=== PATIENT | female | born 1980 | race Caucasian/White ===

== ENCOUNTER → 2020-10-27 08:26 | Outpatient (BNVA) | payer BC, SELFPAY | PROVIDERS: PCP Nurse Practitioner Family; Referring Provider Nurse Practitioner Family; Visit Provider Anesthesiology Pain Medicine | DX: G89.29 Other chronic pain (principal); M54.9 Dorsalgia, unspecified; M51.36 Other intervertebral disc degeneration, lumbar region; M47.816 Spondylosis without myelopathy or radiculopathy, lumbar region; Z79.891 Long term (current) use of opiate analgesic | CPT/HCPCS: 99205 ==

== ENCOUNTER → 2020-11-24 08:16 | Outpatient (BNVA) | payer BC, SELFPAY | PROVIDERS: PCP Nurse Practitioner Family; Visit Provider Anesthesiology Pain Medicine | DX: M47.816 Spondylosis without myelopathy or radiculopathy, lumbar region (principal); M51.36 Other intervertebral disc degeneration, lumbar region; M54.9 Dorsalgia, unspecified; Z79.891 Long term (current) use of opiate analgesic | CPT/HCPCS: 99214 ==

== ENCOUNTER 2020-12-05 12:52 | Outpatient (CLI) | payer BC, SELFPAY ==
--- NOTE | 2020-12-05 12:55 | MM_ITS ---
WS: [id number] BILATERAL DIGITAL DIAGNOSTIC MAMMOGRAM MAMMOGRAPHY WITH CAD CLINICAL INFORMATION: LT AXILLARY SWELLING HISTORY: Covid vaccine November 19, 2020 Left arm. Left axillary lump. COMPARISON: None. TECHNIQUE: Bilateral CC, MLO, and ML views. FINDINGS: Scattered fibroglandular densities bilaterally. Palpable marker overlying the left axilla demonstrate s multiple slightly prominent lymph nodes. Ultrasound is pending. No suspicious focal mass, asymmetry, calcifications, or architectural distortion in either breast. ULTRASOUND BREAST LEFT TECHNIQUE: Ultrasound left breast focused area of concern. CLINICAL INFORMATION: LT AXILLARY SWELLING COMPARISON: None. FINDINGS: Ultrasound left axilla demonstrates multiple slightly enlarged lymph nodes with preserved fatty devon. The largest measures approximately 1.9 x 0.6 x 1.5 CM. 2 additional lymph nodes measuring 1.0 x 0.5 x 1.2 cm and 1.3 x 0.5 x 0.9 cm Unilateral axillary lymphadenopathy has been reported in patients after administration of COVID-19 Va ccine. Lymph nodes are probably benign and recommend short interval follow-up ultrasound in 4-6 weeks . MM/[place] [id number] IMPRESSION: BI-RADS: 3-Probably Benign FOLLOW UP: See Report Recommend follow-up left axillary ultrasound in 4-6 weeks for further assessmen t of the left axillary lymph nodes.
== END 2020-12-05 12:53 | disposition home or self-care (01) ==
LOC: RADSHAW 12:54
PROVIDERS: PCP Nurse Practitioner Family; Visit Provider Nurse Practitioner Family
DX: M79.89 Other specified soft tissue disorders (principal)
CPT/HCPCS: 76642; 77066

== ENCOUNTER 2020-12-09 09:22 | Outpatient (RCR) | payer BC, SELFPAY | END 2020-12-24 23:59 | disposition home or self-care (01) | LOC: SPT 09:22 | PROVIDERS: PCP Nurse Practitioner Family; Referring Provider Anesthesiology Pain Medicine; Visit Provider Anesthesiology Pain Medicine | DX: M54.5 Low back pain (principal); G89.29 Other chronic pain | CPT/HCPCS: 97110; 97161 ==

== ENCOUNTER 2020-12-25 06:00 | Outpatient (RCR) | payer BC, SELFPAY | END 2021-01-23 23:59 | disposition home or self-care (01) | LOC: SPT 06:00 | PROVIDERS: PCP Nurse Practitioner Family; Referring Provider Anesthesiology Pain Medicine; Visit Provider Anesthesiology Pain Medicine | DX: M54.5 Low back pain (principal); G89.29 Other chronic pain | CPT/HCPCS: 97110; 99214 ==

== ENCOUNTER → 2020-12-25 08:32 | Outpatient (BNVA) | payer BC, SELFPAY | PROVIDERS: PCP Nurse Practitioner Family; Visit Provider Anesthesiology Pain Medicine | DX: M47.816 Spondylosis without myelopathy or radiculopathy, lumbar region (principal); M51.36 Other intervertebral disc degeneration, lumbar region; M54.9 Dorsalgia, unspecified; Z79.891 Long term (current) use of opiate analgesic | CPT/HCPCS: 99214 ==

== ENCOUNTER 2021-01-15 06:54 | Day surgery (SDC) | payer BC, SELFPAY ==
[2021-01-14 18:41] VITALS: BMI 25.8
[2021-01-15] VITALS (12 sets, daily range): BP systolic 99–135; BP diastolic 61–84; PULSE 70–97; RESP 12–20; TEMP 36.4–36.6; O2SAT 94–100
[2021-01-15] MEDS: sodium chloride 0.9% 1,000 ML 30 ML IV (07:39)
--- NOTE | 2021-01-15 08:11 | W.PM.OPSUD ---
Surgery/Procedure H&P Update DATE OF PROCEDURE: January 15, 2021 DATE H&P PERFORMED: 01/12/21 H&P UPDATE INFORMATION: No changes to prior documentation PLANNED PROCEDURE: Operation Date: 01/15/21 08:30 Proposed Procedures p Left axillary lymph node biopsy 47058 R59.0 Z85.71(Left) - Vinicio Sparrow MD
--- NOTE | 2021-01-15 08:45 | ANES.PREANE2 ---
Pre-Anesthetic Assessment Pre-Anesthetic Assessment: Height/Weight: Height 1.75 m Weight 79.379 kg Temp Pulse Resp BP Pulse Ox 97.8 F 96 16 116/84 100 01/15/21 07:16 01/15/21 07:16 01/15/21 07:16 01/15/21 07:16 01/15/21 07:16 Proposed Procedure: Operation Date: 01/15/21 08:30 Proposed Procedures p Left axillary lymph node biopsy 43354 R59.0 Z85.71(Left) - Vinicio Sparrow MD Was Beta Mookie taken within 24 hours: Yes Was Clonidine taken within 24 hours: N/A Last intake: Intake Last Liquid Date 01/15/21 Last Liquid Time 06:00 Last Solid Date 01/14/21 Last Solid Time 19:00 Social: Social History: No alcohol and No tobacco Exam: Pre-Anes Outpt Exam: alert, oriented x 3, clear to auscultation bilaterally and regular rate & rhythm Airway: Submandibular: WNL Cervical ROM: WNL MP: 2 Dentition: Full GI: GI: GERD Musc/skel: Musc/skel: Lower Back Pain Neuropsych: Neuropsych: GARAY Comments: MS Anesthetic Plan: ASA status: 3 Anesthesia: General Risk of > 500 ml blood loss (7ml/kg in children): No Meds/Allergies Current Medications: Current Medications Generic Name Dose Route Start Last Admin Trade Name Freq PRN Reason Stop Dose Admin Sodium Chloride 1,000 mls @ 30 ml s/hr 01/15/21 07:00 01/15/21 07:39 Sodium Chloride 0.9% IV 01/16/21 06:59 30 mls/hr .Q24H ARELY Administration PFSH Anesthesia PFSH: Family History Mother Multiple sclerosis Social History Smoking and tobacco status: never smoked Alcohol intake: never History of recent travel: No Data Anesthesia Cardiac Studies: No Data to Display
--- NOTE | 2021-01-15 09:54 | P.OP_ITS ---
Operative Report Date of procedure: January 15, 2021 Pre-op Diagnosis: Left axillary lymphadenopathy, history of Hodgkin's lymphoma. Post-op diagnosis: same Procedure Done: Left axillary lymph node biopsy. Specimens removed/disposition: Lymph node(s) for lymph node prep. Surgeon: Vinicio Sparrow Anesthesia: General Estimated blood loss (mL): 5 Complications: None. Condition: stable Disposition: PACU Procedure: The patient was brought to the operating room and was placed in a supine position on the operating room table. General anesthesia was induced by means of a laryngeal mask airway. The left axilla was prepped and draped in a sterile fashion. A combination of 1% lidocaine with 1 to 100,000 parts epinephrine and 0.5% bupivacaine was used for local anesthesia throughout the procedure. A slightly curvilinear incision was carried out in the low?mid axilla just below the area of palpable firmness. Cautery was used to divide the subcutaneous tissue and eventually the axilla was entered. Palpation revealed some palpable lymph nodes somewhat superiorly. These were carefully freed using blunt dissection and were removed. It appeared as if there were perhaps 2 or 3 lymph nodes somewhat matted together and all of these were removed as one specimen. The lymph nodes may have been mildly enlarged. The wound was irrigated with saline and hemostasis appeared to be good. The subcutaneous tissue was closed using a single inverted suture of 3-0 Vicryl and the skin was reapproximated using a running subcuticular suture of 4-0 Vicryl. Benzoin and a Steri-Strip w ere placed over the incision and a sterile fluff dressing was then applied. The patient was taken to the recovery area in stable condition postoperatively.
[2021-01-15] MEDS: fentaNYL 50 mcg/mL INJ 2mL IVP ×2 (10:09→10:14)
[2021-01-15] MEDS: HYDROcodone-acetaminophen 5-325 mg Tablet 1 TAB PO (11:15)
--- NOTE | 2021-01-15 15:42 | ANE.PACU2 ---
Inpatient post-anesthesia follow up: Airway intact: Yes Vital signs: Temperature 97.8 F Pulse Rate 70 Respiratory Rate 18 Blood Pressure 135/68 Pulse Oximetry 96 Oxygen Delivery Me thod Room Air Oxygen Flow Rate 8 Fraction of Inspir ed Oxygen Hydration adequate: Yes Nausea and vomiting: No Pain level: 1 Mental status: Baseline
[2021-01-26 10:57] LABS: Miscellaneous Test See Scanned Lab Rpt
== END 2021-01-15 11:32 | disposition home or self-care (01) ==
PROVIDERS: PCP Nurse Practitioner Family; Visit Provider Surgery
PROC: (CPT 38525; principal; 2021-01-15 08:30)
DX: R59.0 Localized enlarged lymph nodes (principal); Z87.51 Personal history of pre-term labor; K21.9 Gastro-esophageal reflux disease without esophagitis; I50.9 Heart failure, unspecified; E78.00 Pure hypercholesterolemia, unspecified
CPT/HCPCS: 38525; 12345; 87015; 87070; 87102; 87116; 87176; 87205; 87206; 87801; 88184; 88185; 88305; J0690; J2250; J2405; J2704; J3010; J3490; J7030

== ENCOUNTER → 2021-01-22 08:26 | Outpatient (BNVA) | payer BC, SELFPAY | PROVIDERS: PCP Nurse Practitioner Family; Visit Provider Anesthesiology Pain Medicine | DX: M47.816 Spondylosis without myelopathy or radiculopathy, lumbar region (principal); M51.36 Other intervertebral disc degeneration, lumbar region; M54.9 Dorsalgia, unspecified; G35 Multiple sclerosis; Z79.891 Long term (current) use of opiate analgesic | CPT/HCPCS: 99214 ==

== ENCOUNTER 2021-01-24 06:00 | Outpatient (RCR) | payer BC, SELFPAY | END 2021-02-23 23:59 | disposition home or self-care (01) | LOC: SPT 06:00 | PROVIDERS: PCP Nurse Practitioner Family; Referring Provider Anesthesiology Pain Medicine; Visit Provider Anesthesiology Pain Medicine | DX: M54.5 Low back pain (principal); G89.29 Other chronic pain | CPT/HCPCS: 97110 ==

== ENCOUNTER → 2021-02-19 13:06 | Outpatient (BNVA) | payer BC, SELFPAY | PROVIDERS: PCP Nurse Practitioner Family; Visit Provider Anesthesiology Pain Medicine | DX: G89.29 Other chronic pain (principal); M54.41 Lumbago with sciatica, right side; M47.816 Spondylosis without myelopathy or radiculopathy, lumbar region; M51.36 Other intervertebral disc degeneration, lumbar region; M54.9 Dorsalgia, unspecified; G35 Multiple sclerosis; Z79.891 Long term (current) use of opiate analgesic | CPT/HCPCS: 99214 ==

== ENCOUNTER 2021-02-24 06:00 | Outpatient (RCR) | payer BC, SELFPAY | END 2021-03-25 23:59 | disposition home or self-care (01) | LOC: SPT 06:00 | PROVIDERS: PCP Nurse Practitioner Family; Referring Provider Anesthesiology Pain Medicine; Visit Provider Anesthesiology Pain Medicine | DX: M54.5 Low back pain (principal); G89.29 Other chronic pain | CPT/HCPCS: 97110 ==

== ENCOUNTER → 2021-03-17 09:42 | Outpatient (BNVA) | payer BC, SELFPAY | PROVIDERS: PCP Nurse Practitioner Family; Visit Provider Anesthesiology Pain Medicine | DX: G89.29 Other chronic pain (principal); M54.41 Lumbago with sciatica, right side; M47.816 Spondylosis without myelopathy or radiculopathy, lumbar region; M51.36 Other intervertebral disc degeneration, lumbar region; M54.9 Dorsalgia, unspecified; G35 Multiple sclerosis; Z79.891 Long term (current) use of opiate analgesic; Z87.891 Personal history of nicotine dependence | CPT/HCPCS: 99214 ==

== ENCOUNTER → 2021-04-14 09:48 | Outpatient (BNVA) | payer BC, SELFPAY | PROVIDERS: PCP Nurse Practitioner Family; Visit Provider Anesthesiology Pain Medicine | DX: G89.29 Other chronic pain (principal); M54.41 Lumbago with sciatica, right side; M47.816 Spondylosis without myelopathy or radiculopathy, lumbar region; M51.36 Other intervertebral disc degeneration, lumbar region; G35 Multiple sclerosis; Z79.891 Long term (current) use of opiate analgesic | CPT/HCPCS: 99214 ==

== ENCOUNTER → 2021-05-12 10:44 | Outpatient (BNVA) | payer BC, SELFPAY | PROVIDERS: PCP Nurse Practitioner Family; Visit Provider Anesthesiology Pain Medicine | DX: M47.816 Spondylosis without myelopathy or radiculopathy, lumbar region (principal); M51.36 Other intervertebral disc degeneration, lumbar region; G35 Multiple sclerosis; Z79.891 Long term (current) use of opiate analgesic; Z87.891 Personal history of nicotine dependence | CPT/HCPCS: 99214 ==

== ENCOUNTER → 2021-06-09 09:31 | Outpatient (BNVA) | payer BC, SELFPAY | PROVIDERS: PCP Nurse Practitioner Family; Visit Provider Anesthesiology Pain Medicine | DX: M47.816 Spondylosis without myelopathy or radiculopathy, lumbar region (principal); M51.36 Other intervertebral disc degeneration, lumbar region; G35 Multiple sclerosis; M79.604 Pain in right leg; M79.605 Pain in left leg; Z79.891 Long term (current) use of opiate analgesic | CPT/HCPCS: 99214 ==

== ENCOUNTER → 2021-07-07 08:55 | Outpatient (BNVA) | payer BC, SELFPAY | PROVIDERS: PCP Nurse Practitioner Family; Visit Provider Anesthesiology Pain Medicine | DX: M47.816 Spondylosis without myelopathy or radiculopathy, lumbar region (principal); M51.36 Other intervertebral disc degeneration, lumbar region; G35 Multiple sclerosis; M79.604 Pain in right leg; M79.605 Pain in left leg; R25.1 Tremor, unspecified; Z79.891 Long term (current) use of opiate analgesic; Z87.891 Personal history of nicotine dependence | CPT/HCPCS: 99214 ==

== ENCOUNTER → 2021-09-01 10:34 | Outpatient (BNVA) | payer BC, SELFPAY | PROVIDERS: PCP Nurse Practitioner Family; Visit Provider Anesthesiology Pain Medicine | DX: M47.816 Spondylosis without myelopathy or radiculopathy, lumbar region (principal); M51.36 Other intervertebral disc degeneration, lumbar region; G35 Multiple sclerosis; M79.604 Pain in right leg; M79.605 Pain in left leg; Z85.71 Personal history of Hodgkin lymphoma; Z79.891 Long term (current) use of opiate analgesic; Z87.891 Personal history of nicotine dependence | CPT/HCPCS: 99214 ==

== ENCOUNTER 2022-02-09 07:54 | Outpatient (CLI) | payer BC, SELFPAY ==
--- NOTE | 2022-02-09 08:04 | MR_ITS ---
WS: [email or web address] MRI CERVICAL SPINE with and without contrast. HISTORY: MS COMPARISON: None available. Technique: Multiplanar, multisequence noncontrast imaging of the cervical spine. Postcontrast images also obtained. Sagittal and axial T1 fat sat sequences post-MultiHance 17 cc IV. Posterior alignment is normal of the cervical vertebral bodies. There is increased T2 and FLAIR signal in the cervical cord at the C2-3 level extending over a length of 10 mm. This is just to the RIGHT of midline. On the postcontrast sequences there is some very mil d enhancement. At additional increased T2 signal in the LEFT lateral cervical cord at C5-6. Seen best on the axial imaging. No enhancement. No abnormality is noted in the cerebellum. Craniocervical junction, C1 and C2 relationship, odontoid process and soft tissues are normal. Additional abnormal signal in the thoracic cord will be better seen on the follow-up MRI of the thora cic spine. C2-C3: Normal. C3-C4: Normal. C4-C5: Tiny central disc protrusion. C5-C6: Mild disc bulging. C6-C7: Tiny central disc protrusion with annular fissure. Small bilateral foraminal osteophyte, LEFT greater than RIGHT. No stenosis. C7-T1: Normal. Paraspinal soft tissue are normal. MR/MR cervical spine wo/w [id number] IMPRESSION: 1. Demyelinating lesions in the cervical cord at C2-3 and C5-6. 2. Very minimal enhancement in the demyelinating lesion at the C2-3 level. 3. No cord atrophy. 4. No significant central or foraminal stenosis.
--- NOTE | 2022-02-09 08:05 | MR_ITS ---
WS: [email or web address] MRI THORACIC SPINE with and without contrast. HISTORY: MS COMPARISON: None available. TECHNIQUE: Multiplanar sequences are performed in sagittal and axial planes. Sagittal and axial T1 fa t sat sequences post-MultiHance 17 cc IV. Sagittal STIR sequence is limited by motion. Focal area of increased T2 signal in the thoracic cord extends over a length of 1.0 cm centered at T3 -4. No enhancement on the postcontrast studies. No definite additional areas of abnormal signal. No c ord atrophy. There is no cord enlargement. Conus tapers normally at L1. Seen on the axial T1 postcontrast sequence is a very subtle nodular area of increased enhancement in the dorsal RIGHT lateral thoracic cord at the T5-6 disc level. Nodular enhancement measures 4 mm diam eter. This is not identified on the STIR sequence but there is motion artifact on this sequence. I bullock spect this could be a demyelinating lesion but only seen on the postcontrast axial imaging. No significant disc protrusions or stenosis throughout the thoracic spine. Mild facet joint arthritis and hypertrophy beginning at T7-8 through T12-L1. MR/MR thoracic spine wo/w [id number] IMPRESSION: 1. Seen only on the axial postcontrast images is a 4 mm area of enhancement at the T5-6 disc level. Suspicious for an area of active demyelination. 2. Demyelinating lesion at the T3-4 level does not enhance.
== END 2022-02-09 07:55 | disposition home or self-care (01) ==
PROVIDERS: PCP Nurse Practitioner Family; Visit Provider Psychiatry & Neurology Neurology
DX: M50.221 Other cervical disc displacement at C4-C5 level (principal); M50.223 Other cervical disc displacement at C6-C7 level; M54.6 Pain in thoracic spine; M54.2 Cervicalgia
CPT/HCPCS: 72156; 72157

== ENCOUNTER 2022-03-11 12:14 | Outpatient (CLI) | payer BC, SELFPAY ==
[2022-03-11 13:27] LABS: Free T4 Free Thyroxine 0.82 ng/dL (0.82-1.77); Thyroid Stimulating Hormone 2.49 uIU/mL (0.27-4.20)
[2022-03-12 14:12] LABS: Thyroglobulin AB <1 IU/mL (< or = 1); Thyroid Peroxidase Antobodies 1 IU/mL (<9)
[2022-03-19 20:34] LABS: TSH Receptor Binding Antibody <1.00 IU/L (< OR = 2.00)
== END 2022-03-11 12:15 | disposition home or self-care (01) ==
PROVIDERS: PCP Nurse Practitioner Family; Visit Provider Internal Medicine
DX: E03.9 Hypothyroidism, unspecified (principal)
CPT/HCPCS: 36415; 83516; 84439; 84443; 86376; 86800

== ENCOUNTER → 2022-11-09 09:42 | Outpatient (BNVA) | payer BC, SELFPAY | PROVIDERS: PCP Nurse Practitioner Family; Visit Provider Anesthesiology Pain Medicine | DX: M47.816 Spondylosis without myelopathy or radiculopathy, lumbar region (principal); M51.36 Other intervertebral disc degeneration, lumbar region; M54.50 Low back pain, unspecified; M54.9 Dorsalgia, unspecified; G89.29 Other chronic pain; G35 Multiple sclerosis | CPT/HCPCS: 72110 ==

== ENCOUNTER 2022-12-24 16:08 | Outpatient (CLI) | payer BC, MEDICAID, SELFPAY ==
--- NOTE | 2022-12-24 | US_ITS ---
WS: [email or web address] THYROID ULTRASOUND HISTORY: THYROID NODULE COMPARISON: None available. Right lobe: 2.2 cm x 2.5 cm x 4.7 cm (w x ap x l). Volume: 13.4 cm3. Enlarged and very heterogeneous, nodular thyroid gland. Diffuse heterogeneity with several cystic nod ules. Continued increased vascularity. Left lobe: Prior LEFT thyroidectomy. No mass in the thyroid bed. Isthmus: Removed. US/US thyroid [id number] IMPRESSION: 1. Status post LEFT thyroidectomy. 2. Enlarged heterogeneous nodular RIGHT thyroid with mild increased vascularit y. Probably due to Kristen's thyroiditis or goiter. There are numerous nodule s which are predominantly cystic. There is no one discrete nodule that appears more concerning than another.
== END 2022-12-24 16:09 | disposition home or self-care (01) ==
PROVIDERS: PCP Nurse Practitioner Family; Visit Provider Internal Medicine
DX: E89.0 Postprocedural hypothyroidism (principal); E04.2 Nontoxic multinodular goiter
CPT/HCPCS: 76536

== ENCOUNTER 2023-01-10 14:29 | Outpatient (CLI) | payer BC, MEDICAID, SELFPAY ==
--- NOTE | 2023-01-10 14:30 | MR_ITS ---
WS: [email or web address] MRI CERVICAL SPINE NONCONTRAST TECHNIQUE: Sagittal T1, T2 and STIR imaging. Axial T2, gradient, and fiesta imaging. CLINICAL INFORMATION: G35 - Multiple sclerosis COMPARISON: February 09, 2022 FINDINGS: Straightening of the normal cervical lordosis. Cord signal is normal. No high-grade central canal romana rowing. Chronic demyelinating plaques within the cervical cord. No enhancing lesions to indicate acti ve disease. No significant cord atrophy. Demyelinating lesions more prominent at C2-C3 C5-C6 and T3. C2-C3: Normal. C3-C4: Normal. C4-C5: Minimal disc bulging. Spinal canal and foramen are patent. C5-C6: Minimal disc bulging. Mild facet arthropathy. Spinal canal and foramen are patent. C6-C7: LEFT eccentric disc bulging with mild LEFT proximal foraminal narrowing. Tiny annular fissure. Spinal canal and RIGHT foramen are patent. Mild facet arthropathy. C7-T1: LEFT eccentric disc osteophytic ridging. Mild LEFT and no significant RIGHT foraminal narrowin g. Mild facet arthropathy. Visualized brain stem structures: Normal. Prevertebral soft tissues: Normal. MR/MR cervical spine wo/w [id number] IMPRESSION: 1. Chronic demyelinating plaques within the cervical cord. No enhancing lesion s to indicate active disease. 2. No significant cord atrophy. 3. LEFT eccentric disc bulging C6-C7 with a tiny annular fissure. Mild LEFT C6 -C7 and LEFT C7-T1 foraminal narrowing. 4. Heterogeneous RIGHT thyroid with thyroid nodules the largest measuring 9.5 mm. This can be further evaluated with ultrasound
--- NOTE | 2023-01-10 15:15 | MR_ITS ---
WS: [email or web address] MRI THORACIC SPINE WITH CONTRAST TECHNIQUE: Sagittal T1, T2 and STIR imaging. Axial T2 imaging. Post gadolinium imaging was obtained. CLINICAL INFORMATION: G35 - Multiple sclerosis COMPARISON: February 09, 2022 FINDINGS: Mild thoracic curve. No acute compression. No high-grade central canal stenosis. A few chronic demyel inating plaques within the thoracic cord. No enhancing lesions to indicate active disease. Mild facet arthropathy in the lower thoracic spine. Normal caliber thoracic aorta. No significant cord atrophy. Chronic demyelinating plaques most prominent at T3-T4, T6, and T8. These appear unchanged from previo us. Mild bony foraminal narrowing RIGHT T9-T10, RIGHT T10-T11. Tiny RIGHT pericentral protrusion T9-T10. MR/MR thoracic spine wo/w [id number] IMPRESSION: 1. Chronic demyelinating plaques within the thoracic cord is unchanged from pr evious. No enhancing lesions to indicate active disease. 2. No significant cord atrophy. 3. No central canal stenosis. 4. No other suspicious findings.
[2023-01-10] MEDS: gadobenate dimeglumine 20 mL vial IV (16:09)
== END 2023-01-10 14:30 | disposition home or self-care (01) ==
LOC: RAD 14:38
PROVIDERS: PCP Nurse Practitioner Family; Visit Provider Specialist
DX: G35 Multiple sclerosis (principal)
CPT/HCPCS: 72156; 72157; A9577

== ENCOUNTER 2023-01-11 15:57 | Outpatient (CLI) | payer BC, MEDICAID, SELFPAY ==
--- NOTE | 2023-01-11 16:00 | MR_ITS ---
WS: [email or web address] MRI HEAD WITH CONTRAST TECHNIQUE: Sagittal T1, T2 axial, T2 axial FLAIR, axial susceptibility weighted imaging, axial diffus ion weighted images, and coronal T2 images were obtained. Pre and post-T1 axial and post T1 coronal i mages. ADC and FSPGR images. CLINICAL INFORMATION: G35 - Multiple sclerosis COMPARISON: No MRI head comparisons. FINDINGS: No evidence of restricted diffusion to suggest acute ischemia. Ventricular system and basal cisterns are patent. Normal posterior fossa. Normal vascular flow voids at the skull base. No extra-axial flui d collections. No evidence of mass or mass effect. Paranasal sinuses and mastoid air cells well aerat ed. Normal posterior nasopharynx and parapharyngeal fat. 2 or 3 tiny foci of T2 hyperintensity in the periventricular white matter. Corpus callosum is normal in appearance. No significant corpus callosal atrophy. No significant parenchymal volume loss. Normal posterior fossa. Normal vascular flow voids at the skull base. No extra-axial fluid collections. Par anasal sinuses are well aerated. Normal optic chiasm and pituitary infundibulum. Temporal lobes and hippocampal formations are normal in appearance. Normal cavernous sinuses and Meckel's cave. No hemosiderin on susceptibly weighted lon ges. No abnormal intracranial enhancement. No enhancing intracranial lesions. Normal dural venous sin uses. No significant T1 hypointense lesion load. MR/MR head wo/w con [id number] IMPRESSION: 1. No evidence of restricted diffusion to suggest acute ischemia. 2. 2 or 3 tiny nonspecific foci of T2 hyperintensity in the periventricular wh ite matter. No abnormal gadolinium enhancement to suggest active demyelinating plaques. 3. Corpus callosum is normal in appearance. No significant callosal atrophy. 4. No abnormal gadolinium enhancement. 5. No significant parenchymal volume loss. 6. No other suspicious findings.
[2023-01-11] MEDS: gadobenate dimeglumine 20 mL vial IV (16:15)
== END 2023-01-11 15:58 | disposition home or self-care (01) ==
LOC: RAD 16:01
PROVIDERS: PCP Nurse Practitioner Family; Visit Provider Specialist
DX: G35 Multiple sclerosis (principal)
CPT/HCPCS: 70553; A9577

== ENCOUNTER 2023-04-19 09:00 | Oncology outpatient (recurring) (ONCR) | payer BC, SELFPAY ==
[2023-04-05] VITALS (10 sets, daily range): BP systolic 110–127; BP diastolic 68–76; PULSE 90–105; RESP 16–18; TEMP 35.7–37.3; O2SAT 95–99; BMI 27.1
[2023-04-05] MEDS: acetaminophen 500 mg Tablet 1000 MG PO (14:43)
[2023-04-05] MEDS: sodium chloride 0.9% 250 ML 75 ML IV ×2 (14:45→17:44)
[2023-04-05] MEDS: diphenhydrAMINE 50 mg/mL SDV 1mL 25 MG IVP ×3 (14:48→17:30)
[2023-04-05] MEDS: methylPREDNISolone sod succ 125 mg/2 mL INJ IVP (14:56)
[2023-04-05] MEDS: ocrelizumab 300 MG in sodium chloride 0.9% 250 ML 30 MG IV (15:10)
[2023-04-05] MEDS: methylPREDNISolone sod succ 125 mg/2 mL INJ 250 MG IVP (18:01)
[2023-04-19] VITALS (9 sets, daily range): BP systolic 103–126; BP diastolic 63–77; PULSE 85–99; RESP 16; TEMP 36.2–36.7; O2SAT 98–99; BMI 27.1
[2023-04-19] MEDS: sodium chloride 0.9% 250 ML IV (10:13)
[2023-04-19] MEDS: acetaminophen 500 mg Tablet 1000 MG PO (10:18)
[2023-04-19] MEDS: diphenhydrAMINE 50 mg/mL SDV 1mL 25 MG IVP (10:20)
[2023-04-19] MEDS: methylPREDNISolone sod succ 125 mg SDV IV (10:34)
[2023-04-19] MEDS: ocrelizumab 300 MG in sodium chloride 0.9% 250 ML 30 MG IV (11:05)
== END 2023-04-25 23:59 | disposition home or self-care (01) ==
PROVIDERS: PCP Nurse Practitioner Family; Visit Provider Specialist
DX: G35 Multiple sclerosis (principal)
CPT/HCPCS: 96361; 96375; 96376; 96413; 96415; J1200; J2350; J2930; J7050

== ENCOUNTER 2023-10-03 08:42 | Oncology outpatient (recurring) (ONCR) | payer BC, MEDICAID, SELFPAY ==
[2023-10-03] MEDS: acetaminophen 500 mg Tablet 1000 MG PO (09:54)
[2023-10-03] MEDS: sodium chloride 0.9% 250 ML 75 ML IV (09:55)
[2023-10-03] MEDS: diphenhydrAMINE 50 mg/mL SDV 1mL 25 MG IVP (09:56)
[2023-10-03] MEDS: methylPREDNISolone sod succ 125 mg SDV IVP (09:59)
[2023-10-03 10:15] VITALS: BP 103/68; PULSE 90; RESP 16; TEMP 36.1; O2SAT 95
[2023-10-03] MEDS: ocrelizumab 600 MG in sodium chloride 0.9% 500 ML 40 MG IV (10:15)
[2023-10-03 10:45] VITALS: BP 102/66; PULSE 85; RESP 18; TEMP 36.4; O2SAT 98
[2023-10-03 11:20] VITALS: BP 108/68; PULSE 89; RESP 18; TEMP 36.7; O2SAT 97
[2023-10-03 11:50] VITALS: BP 112/74; PULSE 90; RESP 16; TEMP 36.7; O2SAT 97
[2023-10-03 12:45] VITALS: BP 100/67; PULSE 88; RESP 16; TEMP 37; O2SAT 94
[2023-10-03 14:50] VITALS: BP 105/67; PULSE 87; RESP 16; TEMP 36.1; TEMP 36.6; O2SAT 95
== END 2023-10-26 23:59 | disposition home or self-care (01) ==
PROVIDERS: PCP Nurse Practitioner Family; Visit Provider Specialist
DX: G35 Multiple sclerosis (principal)
CPT/HCPCS: 96375; 96413; 96415; J1200; J2350; J2930; J7040; J7050

== ENCOUNTER 2023-10-18 16:22 | Outpatient (CLI) | payer BC, MEDICAID, SELFPAY ==
--- NOTE | 2023-10-18 16:31 | XRR_ITS ---
PROCEDURE INFORMATION: Exam: XR Left Hip Exam date and time: 10/18/2023 4:39 PM Age: 43 years old Clinical indication: Hip pain; Left hip; Patient HX: HX of hodgkins lymphoma; Additional info: M16.9 - osteoarthritis of hip, unspecified TECHNIQUE: Imaging protocol: Radiologic exam of the left hip. Views: 2 or 3 views hip with pelvis when performed. COMPARISON: CR XR lumbar spine min 4V [id number] 11/09/2022 9:47 AM FINDINGS: Bones/joints: No evidence of fracture or subluxation. There is serpiginous sclerosis of the left femoral head suspicious for osteonecrosis. Pelvic ring is grossly intact. Sacrum and coccyx are partially obscured by bowel gas/stool. Soft tissues: Grossly unremarkable. XR/XR hip LT 2-3V wo/w pel* [id number] IMPRESSION: 1. No evidence of fracture or subluxation. 2. Suspected osteonecrosis of the left femoral head. Consider follow-up orthopedic evaluation and MRI of the left hip.
== END 2023-10-18 16:23 | disposition home or self-care (01) ==
LOC: RAD 16:24
PROVIDERS: PCP Nurse Practitioner Family; Visit Provider Anesthesiology Pain Medicine
DX: M16.12 Unilateral primary osteoarthritis, left hip (principal); Z85.71 Personal history of Hodgkin lymphoma; R93.6 Abnormal findings on diagnostic imaging of limbs
CPT/HCPCS: 73502

== ENCOUNTER 2024-01-29 12:24 | Emergency (ER) | payer BC, MEDICAID, SELFPAY ==
[2024-01-29 12:59] VITALS: BP 144/81; PULSE 93; RESP 17; TEMP 36.9; O2SAT 98
--- NOTE | 2024-01-29 13:11 | XRR_ITS ---
PROCEDURE INFORMATION: Exam: XR Right Knee Exam date and time: 01/29/2024 1:55 PM Age: 43 years old Clinical indication: Pain; Knee; Right TECHNIQUE: Imaging protocol: Radiologic exam of the right knee. Views: 3 views. COMPARISON: No relevant prior studies available. FINDINGS: Bones/joints: Normal. Soft tissues: Normal. XR/XR knee RT 3V* [id number] IMPRESSION: No acute findings.
--- NOTE | 2024-01-29 13:19 | W.ED.EXTPRO ---
HPI - Extremity Problem General: Chief complaint: Extremity Problem,Nontraumatic Stated complaint: right knee pain radiating up the leg Time Seen by Provider: 01/29/24 13:11 History of Present Illness: 43-year-old female reports some increasing right knee pain over the last 2 weeks. Patient states on her pain started to exacerbate worse. Patient reports that she has been helping her daughter who has fractured her leg and believes that this added activity has aggravated something in her knee. Patient does take routine tramadol for chronic pain secondary to MS and degeneration of the back. On exam patient has a hinged knee brace in place. Patient appears nontoxic. Vital signs are normal. Review of Systems General: Reports: 10 or more systems reviewed and unremarkable except in HPI and below Musc: Reports: joint pain (Right knee) PFSH ED PFSH: Medical History Chemotherapy-induced malignant neoplasm Tonsillectomy planned Bunion, right foot Multiple sclerosis Surgical History Previous back surgery H/O shoulder surgery Hx of adenoidectomy History of ankle surgery Family History Mother Multiple sclerosis Social History Smoking and tobacco/nicotine status: former use of tobacco/nicotine Second hand smoke exposure: No Alcohol intake: never Substance/Drug Use: never Caregiver/support person: Yes Lives independently: Yes Physical Exam Const: COMMON NORMALS: alert HENMT: COMMON NORMALS: normocephalic HEAD & SCALP: normocephalic Neck/C-Spine: COMMON NORMALS: full ROM Resp: COMMON NORMALS: clear to auscultation bilaterally AUSCULTATION: clear to auscultation bilaterally Cardio: COMMON NORMALS: regular rate RATE: regular rate Back/Pelvis: COMMON NORMALS: thoracic and lumbar spine normal to inspection Extremity: RIGHT LOWER EXTREMITY: Yes knee joint (Decreased range of motion due to pain, minimal swelling,) Right knee: Yes inspection, Yes palpation, Yes ROM and Yes neurovascular exam Neuro: SENSORIUM/ORIENTATION: Yes alert Skin: COMMON NORMALS: turgor normal GENERAL SKIN EXAM: turgor normal Course Vital Signs: Vital signs: Vital Signs Temperature 98.4 F 01/29/24 12:59 Pulse Rate 93 01/29/24 12:59 Respiratory Rate 17 01/29/24 12:59 Blood Pressure 144/81 01/29/24 12:59 Pulse Oximetry 98 01/29/24 12:59 Oxygen Delivery Me thod Room Air 01/29/24 12:59 MDM - Extremity (Nontraumatic) Medical Decision Making 43-year-old female comes in today with right knee pain. On exam patient has joint line tenderness with minimal to no swelling. Decreased range of motion due to pain. Distal pulses and sensation are intact. No redness is noted. Vital signs are normal except for some mild elevation of blood pressure. Differential diagnosis includes but not limited to ligament strain, meniscal injury, osteoarthritis, patellofemoral dysfunction. X-ray was unremarkable. Reviewed exam with patient recommended diclofenac 75 mg twice a day to help with pain and inflammation. Patient was given dexamethasone in the emergency department for inflammation. Patient was also given 30 mg ketorolac for pain. Patient was recommended to follow-up with orthopedist for further evaluation and treatment. Patient reported understanding agreed to plan. XR interpretation done by ED provider, pending radiology final review Discharge Plan Discharge Patient Disposition: Home Clinical Impression: Impingement of right knee joint Condition: Stable Prescriptions: New diclofenac sodium 75 mg tablet,delayed release (DR/EC) 75 mg PO BID Qty: 20 0RF No Action ergocalciferol (vitamin D2) 1,250 mcg (50,000 unit) capsule 1,250 mcg PO DIRECTED esomeprazole magnesium [address] for susp in packet 40 mg PO DAILY levalbuterol tartrate 45 mcg/actuation HFA aerosol inhaler 1 puff inhalation Q6H zolpidem 5 mg tablet 10 mg PO BEDTIME ozanimod 0.23 mg (4)- 0.46 mg (3) capsule,dose pack See Rx Instructions PO PER PKG DIR Rx Instructions: PO PER PKG DIR tramadol 50 mg tablet 50 mg PO TID PRN (Reason: pain) 30 Days Qty: 100 2RF Rx Instructions: Not to be taken with other opioids alcohol or benzodiazepines. levothyroxine 25 mcg tablet 50 mcg PO DAILY Rx Instructions: Take one tablet by mouth daily. propranolol 20 mg tablet 20 mg PO BID Qty: 180 3RF Ocrevus 30 mg/mL solution 600 mg IV Q6M 180 Days Qty: 20 3RF Rx Instructions: 300 mg on day 1 and day 15 then 600 mg every 6 months. gabapentin 300 mg capsule See Rx Instructions .ROUTE .COMPLEX Qty: 120 0RF Dose Instruction: TAKE 3 TO 4 CAPSULES BY MOUTH EVERY EVENING Rx Instructions: TAKE 3 TO 4 CAPSULES BY MOUTH EVERY EVENING Discharge Orders: Discharge ED (Routine); Ordered 01/29/24 Ordered By: Toy Sandoval Referrals: Lucero Calderón FNP [Primary Care Provider] - Discharge Diet: Usual diet Discharge Activity: Increase activity as tolerated Patient Instructions: Knee Pain (ED) Activity Restrictions/Additional Instructions: Continue with routine medications for pain. You may use acetaminophen to help control pain. Use of diclofenac 75 mg twice a day for pain and inflammation. Do not use diclofenac with other NSAIDs such as naproxen or ibuprofen. Use ice or heat for further pain relief. Use crutches and hinged knee brace for further comfort and support of the knee. Case management will contact you regarding follow-up appointment for further evaluation of the knee with bankruptcy law specialist. Stand Alone Forms: Work/School Release Coding Level of Care Code ED Lead Bi Developer for Noreen Conti
[2024-01-29] MEDS: dexamethasone 10 mg/mL INJ IM (13:32)
[2024-01-29] MEDS: ketorolac 30 mg/mL INJ IM (13:32)
--- NOTE | 2024-01-29 14:39 | DCPLANNER ---
Sent followup request to ortho 01/29/24 @[id number]
[2024-01-29 14:40] VITALS: RESP 17; O2SAT 99
== END 2024-01-29 14:41 | disposition home or self-care (01) ==
PROVIDERS: Emergency Provider Nurse Practitioner Family; PCP Nurse Practitioner Family
DX: M25.861 Other specified joint disorders, right knee (principal); G35 Multiple sclerosis; Z87.891 Personal history of nicotine dependence
CPT/HCPCS: 73562; 96372; 99284; J1100; J1885

== ENCOUNTER → 2024-02-10 08:45 | Outpatient (BNVA) | payer BC, MEDICAID, SELFPAY | PROVIDERS: PCP Nurse Practitioner Family; Referring Provider Nurse Practitioner Family; Visit Provider Physician Assistant | DX: M25.561 Pain in right knee; M23.306 Other meniscus derangements, unspecified meniscus, right knee | CPT/HCPCS: 73560; 73565 ==

== ENCOUNTER 2024-03-06 15:42 | Outpatient (CLI) | payer BC, MEDICAID, SELFPAY ==
[2024-03-06 17:15] LABS: Free T4 Free Thyroxine 1.19 ng/dL (0.82-1.77); Thyroid Stimulating Hormone 1.48 uIU/mL (0.27-4.20)
== END 2024-03-06 15:43 | disposition home or self-care (01) ==
LOC: LAB 15:46
PROVIDERS: PCP Nurse Practitioner Family; Visit Provider Internal Medicine
DX: E03.9 Hypothyroidism, unspecified (principal); E04.2 Nontoxic multinodular goiter
CPT/HCPCS: 36415; 84439; 84443

== ENCOUNTER 2024-03-20 13:14 | Outpatient (CLI) | payer BC, MEDICAID, SELFPAY ==
--- NOTE | 2024-03-20 13:30 | US_ITS ---
WS: [email or web address] ULTRASOUND THYROID TECHNIQUE: Ultrasound of the thyroid. CLINICAL INFORMATION: multiple nodules COMPARISON: 11/24/2022 FINDINGS: Thyroid: History of LEFT thyroid and isthmus removed. Heterogeneous RIGHT thyroid lobe with cystic nodules Largest predominantly cystic lesions measuring 1.3 x 0.8 x 1.0 cm in the RIGHT inferior thyroid and a lso 1.0 x 0.7 x 0.9 cm in the inferior RIGHT thyroid. These are stable in appearance compared to prev ious. Right thyroid lobe: 5.7 cm x 1.7 cm x 1.7 cm Cervical lymphadenopathy: None. US/US thyroid [id number] IMPRESSION: 1. History of LEFT thyroidectomy with removal of the isthmus 2. Heterogeneous RIGHT thyroid lobe with multiple cystic nodules. 3. Predominantly cystic right-sided nodules described above unchanged compared to previous.
== END 2024-03-20 13:15 | disposition home or self-care (01) ==
PROVIDERS: PCP Nurse Practitioner Family; Visit Provider Internal Medicine
DX: E04.2 Nontoxic multinodular goiter (principal); E03.9 Hypothyroidism, unspecified; Z98.890 Other specified postprocedural states
CPT/HCPCS: 76536

== ENCOUNTER 2024-04-17 08:30 | Oncology outpatient (recurring) (ONCR) | payer BC, SELFPAY ==
--- NOTE | 2024-04-05 13:45 | MR_ITS ---
WS: [email or web address] MRI RIGHT KNEE NONCONTRAST TECHNIQUE: Axial PD, coronal PD fat sat, coronal PD, sagittal PD, and sagittal PD fat-sat images obta ined. CLINICAL INFORMATION: right knee pain COMPARISON: Radiograph 02/10/2024 FINDINGS: Distal quadriceps and patella tendons are intact. Normal ACL and PCL. Slightly hypertrophic patella. Tiny suprapatellar effusion. Moderate chondromalacia patella with chondral fissuring worse involving the lateral patellar facet. No subchondral edema. Medial and lateral patellar retinaculum are intact. Tiny lobulated popliteal cyst measuring 5 mm. Medial and lateral meniscus are normal in appearance with mild chronic thinning. No acute appearing m eniscal tears. Normal lateral collateral ligament. Normal medial collateral ligament. Otherwise ky l popliteal fossa. MR/MR knee RT wo con* [id number] IMPRESSION: 1. ACL and PCL are intact. 2. Mild chronic thinning of the medial and lateral meniscus. No acute appearin g meniscal tears. 3. Moderate to advanced chondromalacia patella worse involving the lateral pat ellar facet with chondral fissuring. No subchondral edema. 4. No other acute findings. Outbridge grading: grade III: partial-thickness cartilage loss with focal ulcer ation
[2024-04-17] VITALS (8 sets, daily range): BP systolic 102–131; BP diastolic 60–77; PULSE 75–92; RESP 16–17; TEMP 36.4–36.9; O2SAT 95–99
[2024-04-17] MEDS: sodium chloride 0.9% 250 ML 75 ML IV (09:15)
[2024-04-17] MEDS: diphenhydrAMINE 50 mg/mL SDV 1mL 25 MG IVP ×2 (09:16→10:39)
[2024-04-17] MEDS: methylPREDNISolone sod succ 125 mg/2 mL INJ IVP (09:16)
[2024-04-17] MEDS: acetaminophen 500 mg Tablet 1000 MG PO (09:16)
[2024-04-17] MEDS: ocrelizumab 600 MG in sodium chloride 0.9% 500 ML 100 MG IV (09:45)
== END 2024-04-25 23:59 | disposition home or self-care (01) ==
PROVIDERS: PCP Nurse Practitioner Family; Visit Provider Specialist
DX: Z53.9 Procedure and treatment not carried out, unspecified reason (principal); G35 Multiple sclerosis; Z79.899 Other long term (current) drug therapy
CPT/HCPCS: 73721; 96365; 96366; A4222; J1200; J2350; J2919; J7040; J7050

== ENCOUNTER 2024-05-23 15:37 | Outpatient (CLI) | payer BC, SELFPAY ==
--- NOTE | 2024-05-23 15:52 | XR_ITS ---
WS: [id number] Exam: XR hip RT 2-3V wo/w pel* [id number] Date/Time of Exam: 05/23/2024 3:59 PM Reason For Exam: PAIN There is questionable bony sclerosis along the weightbearing surface of the femoral head. The joint s paces preserved. Minimal degenerative change of the acetabulum. Normal soft tissues. XR/XR hip RT 2-3V wo/w pel* [id number] IMPRESSION: 1. Questionable bony sclerosis along the weightbearing surface of the femoral h ead. This is an equivocal finding but could indicate early osteonecrosis. If th e patient does not respond to conservative management then further evaluation w ith MRI should be considered.
== END 2024-05-23 15:38 | disposition home or self-care (01) ==
PROVIDERS: PCP Nurse Practitioner Family
DX: M25.551 Pain in right hip (principal)
CPT/HCPCS: 73502

== ENCOUNTER 2024-10-17 12:13 | Outpatient (CLI) | payer BC, SELFPAY ==
[2024-10-17 13:20] LABS: Immunoglobulin IGG 625 mg/dL (700-1600)
[2024-10-17 13:32] LABS: Hepatitis B Surface AB 10.3 (11.5-1000)
== END 2024-10-17 12:14 | disposition home or self-care (01) ==
LOC: LAB 12:17
PROVIDERS: PCP Nurse Practitioner Family; Visit Provider Specialist
DX: G35 Multiple sclerosis (principal)
CPT/HCPCS: 36415; 82784; 86706

== ENCOUNTER 2024-12-27 13:29 | Outpatient (CLI) | payer BC, SELFPAY ==
--- NOTE | 2024-12-27 13:30 | MM_ITS ---
WS: [email or web address] BILATERAL SCREENING DIGITAL TOMOSYNTHESIS MAMMOGRAM WITH CAD HISTORY: SCREENING COMPARISON: 12/05/2020, 10/20/2016 Bilateral CC and MLO views with tomosynthesis and synthetic mammography submitted. Computer aided detection analyzed. Breast composition: There are scattered areas of fibroglandular density. No suspicious masses, microcalcifications or architectural distortion. MM/MM scr BI tomosynthesis [id number] IMPRESSION: BI-RADS: 1 - Negative. FOLLOW UP: 1 Year Follow-up
== END 2024-12-27 13:30 | disposition home or self-care (01) ==
PROVIDERS: PCP Nurse Practitioner Family; Visit Provider Nurse Practitioner Family
DX: Z12.31 Encounter for screening mammogram for malignant neoplasm of breast (principal); R92.323 Mammographic fibroglandular density, bilateral breasts
CPT/HCPCS: 77063; 77067

== ENCOUNTER → 2025-08-26 09:30 | Outpatient (BNVA) | payer BC, SELFPAY | PROVIDERS: PCP Nurse Practitioner Family; Visit Provider Specialist | DX: G35.D Multiple sclerosis, unspecified (principal) | CPT/HCPCS: 36415; 84443; 86160; 86162; 86235; 86255; 86376; 86431 ==